=== PATIENT | male | born 1995 | race African-American/Black ===

== ENCOUNTER 2024-11-05 01:05 | Emergency (ER) | payer MEDICAID ==
[~2024-11-05] VITALS: Ht 167.6 cm; Wt 68.0 kg
[2024-11-05] MEDS ORDERED: LORAZEPAM 2MG/ML INJ IM ONE (02:15)
[2024-11-05 02:30] VITALS: TEMP 37
[2024-11-05] MEDS: HALOPERIDOL LACTATE 5MG/ML VIAL IM ONE (02:47)
[2024-11-05] MEDS: LORAZEPAM 2MG/ML UD SYRINGE IM SCH (02:48)
[2024-11-05] MEDS: DIPHENHYDRAMINE 50MG/ML VIAL IM ONE (02:58)
[2024-11-05 03:17] LABS: BASOPHILS % 0.5 % (0.0-2.0); EOSINOPHILS % 1.6 % (0.0-5.0); HEMATOCRIT. 46.5 % (42.0-52.0); HEMOGLOBIN. 15.7 g/dL (14.0-18.0); LYMPHOCYTES % 10.9 % (20.0-50.0); MEAN CORPUSCULAR HEMOGLOBIN 28.3 pg (28.0-32.0); MEAN CORPUSCULAR HGB CONC 33.7 g/dL (31.0-37.0); MEAN CORPUSCULAR VOLUME 83.8 fL (80.0-94.0); MEAN PLATELET VOLUME 8.2 fl (7.4-10.4); MONOCYTES % 9.8 % (2.0-8.0); NEUTROPHILS % 77.2 % (40.0-76.0); PLATELET 341 x1000/uL (130-400); RED BLOOD CELL COUNT 5.55 mill/uL (4.7-6.1); RED CELL DISTRIBUTION WIDTH 12.7 % (11.6-14.6); WHITE BLOOD COUNT 13.5 x1000/uL (4.5-11.0)
[2024-11-05 03:25] LABS: CHLORIDE 104 mEq/L (98-107); SODIUM 139 mEq/L (136-145)
[2024-11-05 03:26] LABS: CALCIUM 9.6 mg/dL (8.7-10.4); CARBON DIOXIDE 23 mEq/L (21-32)
[2024-11-05 03:31] LABS: GLUCOSE 104 mg/dL (70-105); UREA NITROGEN BLOOD 8 mg/dL (9-23)
[2024-11-05 03:32] LABS: ETHANOL BLOOD < 10 mg/dL (<10)
[2024-11-05 03:33] LABS: ACETAMINOPHEN < 2 ug/mL (10-30)
[2024-11-05] MEDS: MIDAZOLAM HCL 2 MG/2 ML VIAL IM ONE (04:47)
[2024-11-05] MEDS ORDERED: POTASSIUM CHLORIDE 20MEQ/PACKET PO ONE (05:00)
[2024-11-05 05:27] VITALS: TEMP 98.6; O2SAT 98
[2024-11-05 07:09] LABS: CLARITY URINE CLEAR (CLEAR); COLOR URINE YELLOW (YELLOW); GLUCOSE URINE NEGATIVE (NEGATIVE); KETONES URINE TRACE (NEGATIVE); LEUKOCYTE ESTERASE URINE NEGATIVE (NEGATIVE); NITRITE URINE NEGATIVE (NEGATIVE); OCCULT BLOOD URINE NEGATIVE (NEGATIVE); PH URINE 5.5 (4.5-8.0); PROTEIN URINE TRACE (NEGATIVE); SPECIFIC GRAVITY URINE 1.021 (1.005-1.030); UROBILINOGEN URINE 0.2 E.U./dL (0.2-1.0)
[2024-11-05 07:36] LABS: *AMPHETAMINES SCREEN URINE NEGATIVE (NEGATIVE); *BARBITURATES SCREEN URINE NEGATIVE (NEGATIVE); *BENZODIAZEPINES SCREEN URINE NEGATIVE (NEGATIVE); *COCAINE SCREEN URINE PRESUMPTIVE POSITIVE (NEGATIVE)
[2024-11-05 07:37] LABS: CANNABINOID URINE SCREEN PRESUMPTIVE POSITIVE (NEGATIVE); ECSTASY MDMA SCREEN URINE NEGATIVE (NEGATIVE); METHADONE URINE SCREEN NEGATIVE (NEGATIVE); OPIATES URINE SCREEN NEGATIVE (NEGATIVE); PHENCYCLIDINE URINE SCREEN NEGATIVE (NEGATIVE)
[2024-11-05 07:58] LABS: BACTERIA URINE FEW; RBC URINE NONE SEEN /hpf (0-2); SQUAMOUS EPITHELIAL CELL URINE NONE SEEN /lpf (RARE/1+); YEAST URINE NONE SEEN
[2024-11-05] MEDS: POTASSIUM CHLORIDE 20MEQ/PACKET PO NR (11:47)
[2024-11-05 13:10] VITALS: BP 116/86; PULSE 84; RESP 16; O2SAT 98
== END 2024-11-05 13:47 | disposition home or self-care (01) ==
LOC: ER 01:05
DX: F29 Unspecified psychosis not due to a substance or known physiological condition (principal); Z79.899 Other long term (current) drug therapy
CPT/HCPCS: 80305; 80048; 81003; 80307; 80329; 80320; 82962; 85025; 36415; 96372; 99291; J1200; J1630; J2060; J2250; Z7610; G0480